=== PATIENT | female | born 1935 | race Hispanic/Latino ===

== ENCOUNTER → 2017-06-11 | Outpatient (CLI) | payer OTHER ==
[~2017-06-11] MED LIST: ISOVUE-370 50ML VIAL IV ONE
== END | disposition home or self-care (01) ==
LOC: RAH 08:26
PROVIDERS: ATTEND Internal Medicine
DX: J47.9 Bronchiectasis, uncomplicated (principal); J69.0 Pneumonitis due to inhalation of food and vomit
CPT/HCPCS: 71270; Q9967

== ENCOUNTER 2018-02-06 17:57 | Emergency (ER) | payer OTHER ==
[2018-02-06] MEDS ORDERED: ACETAMINOPHEN-CODEINE 300/30MG TAB ONE (18:16)
== END 2018-02-06 19:17 | disposition home or self-care (01) ==
LOC: EDH 17:57
DX: S52.591A Other fractures of lower end of right radius, initial encounter for closed fracture (principal); E07.9 Disorder of thyroid, unspecified; W18.39XA Other fall on same level, initial encounter; Y93.01 Activity, walking, marching and hiking; Y92.89 Other specified places as the place of occurrence of the external cause; Y99.8 Other external cause status
CPT/HCPCS: 29125; 73080; 73110